=== PATIENT | female | born 1935 | race Caucasian/White ===

== ENCOUNTER → 2016-12-03 | Outpatient (CLI) | payer OTHER, BC | LOC: BMCIMAGING 14:12 | PROVIDERS: ATTEND Internal Medicine Rheumatology | DX: M24.011 Loose body in right shoulder (principal) ==

== ENCOUNTER → 2017-03-17 | Outpatient (CLI) | payer OTHER, BC | LOC: FIMAGING 09:30 | PROVIDERS: ATTEND Internal Medicine | DX: I71.4 Abdominal aortic aneurysm, without rupture (principal) ==

== ENCOUNTER → 2017-04-24 | Outpatient (CLI) | payer OTHER, BC | LOC: FIMAGING 09:39 | PROVIDERS: ATTEND Internal Medicine | DX: Z12.31 Encounter for screening mammogram for malignant neoplasm of breast (principal); Z13.820 Encounter for screening for osteoporosis; M85.80 Other specified disorders of bone density and structure, unspecified site; E07.9 Disorder of thyroid, unspecified; Z78.0 Asymptomatic menopausal state | CPT/HCPCS: G0202 ==

== ENCOUNTER → 2018-02-07 | Outpatient (CLI) | payer OTHER, BC | LOC: BMCIMAGING 14:14 | PROVIDERS: ATTEND Internal Medicine | DX: R05 Cough (principal) ==

== ENCOUNTER → 2018-04-12 | Outpatient (CLI) | payer OTHER, BC | DX: K82.9 Disease of gallbladder, unspecified (principal); K57.30 Diverticulosis of large intestine without perforation or abscess without bleeding; K40.90 Unilateral inguinal hernia, without obstruction or gangrene, not specified as recurrent; I71.4 Abdominal aortic aneurysm, without rupture | CPT/HCPCS: 74177; Q9967 ==

== ENCOUNTER → 2018-04-20 | Outpatient (CLI) | payer OTHER, BC ==
[~2018-04-20] MED LIST: IOPAMIDOL (ISOVUE-300) 100 ML BTL ONE
== END ==
LOC: FIMAGING 15:04
PROVIDERS: ATTEND Internal Medicine
DX: R41.82 Altered mental status, unspecified (principal); R53.83 Other fatigue
CPT/HCPCS: 70470; Q9967; 82565-PO